=== PATIENT | male | born 1955 | race Hispanic/Latino ===

== ENCOUNTER 2017-11-20 18:20 | Emergency (ER) | payer OTHER ==
[2017-11-20 18:42] VITALS: TEMP 98.3
--- NOTE | 2017-11-20 19:05 | ED PDOC ---
Arrival/HPI - General Chief Complaint: Back Pain Time Seen by Provider: 11/20/17 18:21 Historian: Patient - History of Present Illness Narrative History of Present Illness (Text): 11/20/17 19:01 This 62 yo male, homeless, heroine abuse ( 4 bags daily, snort-only) presents to this ED c/o back pain for "few years". Patient stated pain worsen x 2 weeks ago, after he was carrying "bags" in a construction site. Patient denies IV drug use, sob, cp, weakness, paresthesia, saddle anesthesia, urinary retention, urinary symptoms, skin rash, recent fall, fever, recent travel, abdominal pain, or abnormal gait. Time/Duration: Other (see hpi) Quality: Aching Context: Home Past Medical History - Provider Review Nursing Documentation Reviewed: Yes - Cardiac Hx Cardiac Disorders: No - Pulmonary Hx Respiratory Disorders: No - Neurological Hx Neurological Disorder: No - HEENT Hx HEENT Disorder: No - Renal Hx Renal Disorder: No - Endocrine/Metabolic Hx Endocrine Disorders: No - Hematological/Oncological Hx Blood Disorders: No - Integumentary Hx Dermatological Disorder: No - Musculoskeletal/Rheumatological Hx Musculoskeletal Disorders: Yes Hx Back Pain: Yes - Gastrointestinal Hx Gastrointestinal Disorders: No - Genitourinary/Gynecological Hx Genitourinary Disorders: No - Psychiatric Hx Psychophysiologic Disorder: Yes Hx Anxiety: Yes Hx Depression: Yes Hx Substance Use: Yes (HEROIN, CANNABIS) - Surgical History Other/Comment: HERNIA REPAIR Family/Social History - Physician Review Nursing Documentation Reviewed: Yes Family/Social History: Other (noncontributory) Smoking Status: Heavy Smoker > 10 Cigarettes Daily Hx Alcohol Use: Yes Frequency of alcohol use: Socially Hx Substance Use: Yes (HEROIN, CANNABIS) Allergies/Home Meds Allergies/Adverse Reactions: Allergies No Known Allergies Allergy (Verified 11/20/17 18:35) Review of Systems - Review of Systems Constitutional: Normal. absent: Fatigue, Weight Change, Fevers Eyes: Normal ENT: Normal Respiratory: Normal Cardiovascular: Normal Gastrointestinal: Normal Genitourinary Male: Normal Musculoskeletal: Back Pain Skin: Normal Neurological: Normal Endocrine: Normal Hemo/Lymphatic: Normal Psychiatric: Normal Physical Exam Vital Signs Temp Pulse Resp BP Pulse Ox 11/20/17 18:45 98.3 F 64 18 109/73 97 11/20/17 18:36 98.3 F 64 16 109/73 97 Temperature: Afebrile Blood Pressure: Normal Pulse: Regular Respiratory Rate: Normal Appearance: Positive for: Well-Appearing, Non-Toxic, Comfortable Pain Distress: None Mental Status: Positive for: Alert and Oriented X 3 - Systems Exam Head: Present: Atraumatic, Normocephalic Pupils: Present: PERRL Extroacular Muscles: Present: EOMI Conjunctiva: Present: Normal Mouth: Present: Moist Mucous Membranes Neck: Present: Normal Range of Motion. No: Meningeal Signs Respiratory/Chest: Present: Clear to Auscultation, Good Air Exchange. No: Respiratory Distress, Accessory Muscle Use Cardiovascular: Present: Regular Rate and Rhythm, Normal S1, S2. No: Murmurs Abdomen: No: Tenderness, Distention, Peritoneal Signs Back: Present: Normal Inspection, Paraspinal Tenderness (mild left paravertebral tenderness. no vertebral step off. No vertebral point tenderness. no skin rash). No: CVA Tenderness, Midline Tenderness, Pain with Leg Raise Upper Extremity: Present: Normal Inspection, Normal ROM, NORMAL PULSES. No: Cyanosis, Edema Lower Extremity: Present: Normal Inspection, Normal ROM, Neurovascularly Intact. No: Edema Neurological: Present: GCS=15, CN II-XII Intact, Speech Normal, Motor Func Grossly Intact, Normal Sensory Function, Normal Cerebellar Funct, Gait Normal Skin: Present: Warm, Dry, Normal Color. No: Rashes Psychiatric: Present: Alert, Oriented x 3, Normal Insight, Normal Concentration Medical Decision Making ED Course and Treatment: 11/20/17 21:06 Re-evaluation. Patient feels better. Discussed results and plan with patient who expresses understanding. All questions answered and there is agreement with the plan to discharge home with instructions. Patient stable for discharge. Return if symptoms persist or worsen. Re-evaluation Time: 21:06 Reassessment Condition: Re-examined, Improved - RAD Interpretation Radiology Orders: 11/20/17 19:00 LS SPINE WITH OBL > 18 YRS OLD [RAD] Stat - Medication Orders Current Medication Orders: Discontinued Medications Ketorolac Tromethamine (Toradol) 30 mg IM STAT STA Stop: 11/20/17 19:01 Last Admin: 11/20/17 19:11 Dose: 30 mg MAR Pain Assessment Document 11/20/17 19:11 MS (Rec: 11/20/17 19:12 MS [id number]) Pain Reassessment Is this a pain reassessment? No Sleep Is patient sleeping during reassessment? No Presence of Pain Presence of Pain Yes Pain Scale Used Pain Scale Used Numeric Location Pain Location Body Site Back Description Description Intermittent Intensity of Pain at present 5 Pain Behavior Irritability Grasping Site IM Administration Charges Document 11/20/17 19:11 MS (Rec: 11/20/17 19:12 MS [id number]) Injection Site MAR Injection Site Left Deltoid Charges for Administration # of IM Administrations 1 Disposition/Present on Arrival - Present on Arrival Any Indicators Present on Arrival: No History of DVT/PE: No History of Uncontrolled Diabetes: No Urinary Catheter: No History of Decub. Ulcer: No History Surgical Site Infection Following: None - Disposition Have Diagnosis and Disposition been Completed?: Yes Diagnosis: Chronic back pain Disposition: HOME/ ROUTINE Disposition Time: 21:08 Patient Plan: Discharge Condition: IMPROVED Discharge Instructions (ExitCare): Chronic Pain (DC) Additional Instructions: Call private docor for follow up visit in 1-2 days. Take medication as instructed. Return to emergency if symptoms worsen, fever or urinary symptoms. Prescriptions: Ibuprofen [Motrin] 400 mg PO Q8H PRN #20 tab PRN Reason: Pain, Severe (8-10) Referrals: Manpreet Orta MD [Primary Care Provider] - Follow up with primary Forms: [employer] (Danish)
[2017-11-20 22:02] VITALS: BP 110/76; PULSE 66; RESP 16; O2SAT 98
--- NOTE | 2017-11-21 06:59 | RAD ---
PROCEDURE: Radiographs of the Lumbar Spine. HISTORY: Pain. No history of recent/ related trauma provided COMPARISON: No prior. FINDINGS: BONES: Normal alignment. No listhesis. No fracture. DISC SPACES: Multilevel degenerative change primarily disc space narrowing, non marginal osteophyte formation. OTHER FINDINGS: None. IMPRESSION: No acute findings related to/accounting for the clinical presentation. Additional benign and/or incidental findings described above. Concordant results with the preliminary interpretation rendered by the emergency department physician procedure.
== END 2017-11-20 21:16 | disposition home or self-care (01) ==
LOC: ED 18:20
DX: M54.9 Dorsalgia, unspecified (principal); G89.29 Other chronic pain
CPT/HCPCS: 72110; 96372; 99283; J1885

== ENCOUNTER 2018-09-20 16:05 | Observation (INO) | payer MEDICAID, OTHER ==
--- NOTE | 2018-09-20 16:20 | ED PDOC ---
Arrival/HPI - General Chief Complaint: Weakness/Neurological Deficit Historian: Patient, EMS - History of Present Illness Narrative History of Present Illness (Text): 09/20/18 16:17 63 year old homeless male, whose past medical history includes heroine abuse ( 4 bags daily, snort-only), presents to the emergency department via EMS for complaints of shortness of breath and generalized weakness. As per EMS, patient's friend called the ambulance reporting patient is complaining of shortness of breath and weakness. Patient reports he has a history of auditory hallucination for years, but now is complaining of sudden midsternal chest pressure and shortness of breath that began today. Patient admits to heroin use today intranasally and reports history of ben dust use and smoking cigarettes. Patient denies any fever, chills, nausea, vomiting, diarrhea, urinary symptoms, back pain, neck pain, headache, dizziness, suicidal Ideation/homicidal Ideation, or any other complaints. States that he has not had chest heaviness like this in past. Denies trauma. Denies pleuritic pain. No hemoptysis. Symptom Onset: Gradual Symptom Course: Unchanged Context: Street Past Medical History - Provider Review Nursing Documentation Reviewed: Yes - Cardiac Hx Cardiac Disorders: No - Pulmonary Hx Respiratory Disorders: No - Neurological Hx Neurological Disorder: No - HEENT Hx HEENT Disorder: No - Renal Hx Renal Disorder: No - Endocrine/Metabolic Hx Endocrine Disorders: No - Hematological/Oncological Hx Blood Disorders: No - Integumentary Hx Dermatological Disorder: No - Musculoskeletal/Rheumatological Hx Musculoskeletal Disorders: Yes Hx Back Pain: Yes - Gastrointestinal Hx Gastrointestinal Disorders: No - Genitourinary/Gynecological Hx Genitourinary Disorders: No - Psychiatric Hx Anxiety: Yes Hx Depression: Yes Hx Substance Use: Yes (HEROIN, CANNABIS) - Surgical History Other/Comment: HERNIA REPAIR Family/Social History - Physician Review Nursing Documentation Reviewed: Yes Family/Social History: Unknown Family HX Smoking Status: Heavy Smoker > 10 Cigarettes Daily Hx Alcohol Use: Yes Hx Substance Use: Yes (HEROIN, CANNABIS) Allergies/Home Meds Allergies/Adverse Reactions: Allergies No Known Allergies Allergy (Verified 09/20/18 16:16) Home Medications: Home Meds Medication Instructions Recorded Confirmed No Known Home Med 09/20/18 09/20/18 Review of Systems - Review of Systems Constitutional: Fatigue. absent: Fevers, Other (chills) ENT: absent: Hearing Changes, Sore Throat, Rhinorrhea Respiratory: SOB, Cough. absent: Wheezing Cardiovascular: Chest Pain. absent: Palpitations, Edema, OTOOLE Gastrointestinal: absent: Diarrhea, Nausea, Vomiting Genitourinary Male: absent: Dysuria, Frequency, Hematuria Musculoskeletal: absent: Back Pain, Neck Pain Skin: absent: Cellulitis Neurological: Other (generalized weakness). absent: Headache, Dizziness Endocrine: absent: Polyuria Psychiatric: Other (auditory hallucination). absent: Depression, Suicidal Ideation (/HI) Physical Exam - Physical Exam Narrative Physical Exam (Text): Head: Atraumatic. Normocephalic. Eyes: Pupils pinpoint minimally reactive. EOMI. Conjunctivae are not pale. ENT: Mucous membranes are moist and intact. Oropharynx is clear and symmetric. Poor dentition. No stridor, no uvular deviation or exudates. Neck: Supple. Full ROM. No JVD. No lymphadenopathy. Cardiovascular: Regular rate. Regular rhythm. Systolic murmur.. Distal pulses are 2+ and symmetric. Pulmonary/Chest: Mild bilateral expiatory wheezes. Palpable discomfort to left anterior chest wall with no lesions or crepitus noted. No evidence of respiratory distress. Clear to auscultation bilaterally. rales or rhonchi. Abdominal: Mild epigastric pain. No rebound, guarding, or rigidity. No organomegaly. Good bowel sounds. Back: No CVA tenderness. Rectal: no gross bleeding Extremities: Poor hygiene. No edema. No cyanosis. No clubbing. Full range of motion in all extremities. No calf tenderness. Skin: Skin is warm and dry. No petechiae. No purpura. Neurological: Alert, awake, and oriented to person, place, time, and situation. Normal speech. No facial droop. No pronator drift. No focal motor or sensory deficits. Psychiatric: Good eye contact. Currently denies any suicidal or homicidal ideation. Vital Signs Reviewed: Yes Temperature: Afebrile Blood Pressure: Hypertensive Pulse: Regular Respiratory Rate: Normal Appearance: Positive for: Non-Toxic, Unkept Medical Decision Making ED Course and Treatment: 09/20/18 16:19 Impression: 63 year old homeless male presents for complaints of sudden midsternal chest pressure and shortness of breath that began today. Patient admits to heroin use. Differential Diagnosis included but are not limited to: CAD VS COPD VS Pneumonia VS Drug Abuse Plan: -- EKG -- Labs -- Chest X-Ray -- Fingerstick -- Influenza A B -- Urinalysis -- Reassess and disposition Prior Visits: Notes and results from previous visits were reviewed. Progress Notes: Patient on initial exam is awake, alert. Mild wheezing. No respiratory distress. No pleuritic pain. No acute trauma noted. EKG reveals NSR with no acute st elevations. He denies past cardiac history. Chest X-ray Dictator : Kiarra Hunt MD Report Date : 09/20/2018 17:01:42 IMPRESSION: No focal consolidation. 09/20/18 19:36 With serial exams, patient states at rest pain has resolved. Equal pulses in both upper extremities. Nebulizer administered for wheezing. No respiratory distress noted. With serial exams he exhibits no respiratory depression and is awake and alert. Will admit to telemetry observation for cardiac monitoring, serial exams. Case d/w Dr. Drummond accepts admission to hospitalist. - Lab Interpretations I have reviewed the lab results: Yes - RAD Interpretation Parimutuel Cashier: Radiologist - EKG Interpretation Interpreted by ED Physician: Yes Type: 12 lead EKG - Scribe Statement The provider has reviewed the documentation as recorded by the Scribe Nikki Key Provider Scribe Attestation: All medical record entries made by the Scribe were at my direction and personally dictated by me. I have reviewed the chart and agree that the record accurately reflects my personal performance of the history, physical exam, medical decision making, and the department course for this patient. I have also personally directed, reviewed, and agree with the discharge instructions and disposition. Disposition/Present on Arrival - Present on Arrival Any Indicators Present on Arrival: No History of DVT/PE: No History of Uncontrolled Diabetes: No Urinary Catheter: No History of Decub. Ulcer: No History Surgical Site Infection Following: None - Disposition Have Diagnosis and Disposition been Completed?: Yes Diagnosis: Chest pain, Heroin abuse Disposition: HOSPITALIZED Disposition Time: 19:30 Patient Plan: Admission, Observation, Telemetry Patient Problems: Current Active Problems Problem Status Onset Chest pain Acute Heroin abuse Acute Condition: FAIR
--- NOTE | 2018-09-20 17:05 | RAD ---
HISTORY: sob COMPARISON: None available. TECHNIQUE: Chest, one view. FINDINGS: LUNGS: No focal consolidation. Please note that chest x-ray has limited sensitivity for the detection of pulmonary masses. PLEURA: No significant pleural effusion identified. No definite pneumothorax . CARDIOVASCULAR: Heart size appears top normal. Atherosclerotic calcifications of the aortic knob. OSSEOUS STRUCTURES: No acute osseous abnormality identified. VISUALIZED UPPER ABDOMEN: Unremarkable. OTHER FINDINGS: None. IMPRESSION: No focal consolidation.
[2018-09-20 17:17] LABS: BASO # 0.01 {null, K/mm3} (0.0-2.0); BASO % 0.2 % (0.0-3.0); EOS # 0.5 (0.0-0.7); EOS % 7.2 % (1.5-5.0); HEMOGLOBIN 12.1 g/dL (14.0-18.0); LYMPH # 2.3 (1.2-3.4); LYMPH % 34.7 % (22.0-35.0); MEAN CELL VOLUME 92.1 fl (80.0-105.0); MEAN CORPUSCULAR HEMOGLOBIN 28.9 pg (25.0-35.0); MEAN CORPUSCULAR HGB CONC 31.4 g/dl (31.0-37.0); MEAN PLATELET VOLUME 10.3 fl (7.0-11.0); MONO # 0.4 (0.1-0.6); MONO % 6.6 % (1.0-6.0); RBC 4.18 {null, 10^6/uL} (3.5-6.1); RED CELL DISTRIBUTION WIDTH 13.8 % (11.5-14.5); WHITE BLOOD COUNT 6.5 {null, 10^3/uL} (4.5-11.0)
[2018-09-20 17:26] LABS: INR 1.08
[2018-09-20 17:27] LABS: ALB/GLOB RATIO 1.2 (1.1-1.8); ALBUMIN 4.2 g/dL (3.0-4.8); ALT/SGPT 19 U/L (7-56); AST/SGOT 39 U/L (17-59); BLOOD UREA NITROGEN 29 mg/dL (7-21); CALCIUM 9.3 mg/dL (8.4-10.5); GFR NON-AFRICAN AMERICAN > 60
[2018-09-20 17:31] LABS: ACETAMINOPHEN < 10.0 ug/ml (10.0-20.0); SALICYLATE < 1 mg/dL (2.0-20.0)
[2018-09-20 17:39] LABS: B-TYPE NATRIURETIC PEPTIDE 106 pg/mL (0-450); TROPONIN I < 0.01 ng/mL
[2018-09-20] MEDS ORDERED: Albuterol-Ipratrop 3 mg / 0.5 (3 ml) UD IH STA (19:28)
[2018-09-20] MEDS ORDERED: Albuterol-Ipratrop 3 mg / 0.5 (3 ml) UD IH PRN (19:49)
--- NOTE | 2018-09-20 20:15 | CP.PCM.HP ---
<Juan Byrnes - Last Filed: 09/21/18 00:02> History of Present Illness - History of Present Illness History of Present Illness: Juan Byrnes, PGY1 Medicine H&P for Dr. Drummond cc: "sob and chest pain" Patient is a 63 year old homeless male, whose past medical history includes heroine abuse (4 bags daily, snort-only), presents to the emergency department via EMS for complaints of shortness of breath and chest pain. In the ED, patient claimed to have sudden mid-sternal chest pain. Medical team evaluated patient in the ED. Patient only endorsed mild chest discomfort at the time. He is no longer feeling short of breath. However, patient did mention that he snorted cocaine today and also used "ben-dust" (PCP). He also mentioned that his last drink was a shot of liquor yesterday. Patient denies fever, chills, nausea, vomiting, diarrhea, bowel/bladder changes, headache, lightheadedness, dizziness. A full 12 point ROS was conducted and unremarkable except as stated above. PMHx: Heroin abuse (4 bags daily, snort-only) PSHx: left hernia repair (1 year ago), compound fracture (several years ago) Meds: none Allergies: NKDA SocialHx: drinks EtOH, does not specify quantity. Smokes 1 PPD. Uses PCP and heroin frequently. Patient is homeless. FamHx: non-contributory Present on Admission - Present on Admission Any Indicators Present on Admission: No Review of Systems - Review of Systems All systems: reviewed and no additional remarkable complaints except (as per HPI) Past Patient History - Past Social History Smoking Status: Heavy Smoker > 10 Cigarettes Daily - CARDIAC Hx Cardiac Disorders: No - PULMONARY Hx Respiratory Disorders: No - NEUROLOGICAL Hx Neurological Disorder: No - HEENT Hx HEENT Problems: No - RENAL Hx Chronic Kidney Disease: No - ENDOCRINE/METABOLIC Hx Endocrine Disorders: No - HEMATOLOGICAL/ONCOLOGICAL Hx Blood Disorders: No - INTEGUMENTARY Hx Dermatological Problems: No - MUSCULOSKELETAL/RHEUMATOLOGICAL Hx Musculoskeletal Disorders: Yes Hx Back Pain: Yes - GASTROINTESTINAL Hx Gastrointestinal Disorders: No - GENITOURINARY/GYNECOLOGICAL Hx Genitourinary Disorders: No - PSYCHIATRIC Hx Anxiety: Yes Hx Depression: Yes Hx Substance Use: Yes (HEROIN, CANNABIS) - SURGICAL HISTORY Other/Comment: HERNIA REPAIR Meds Allergies/Adverse Reactions: Allergies Allergy/AdvReac Type Severity Reaction Status Date / Time No Known Allergies Allergy Verified 09/20/18 16:16 Physical Exam - Constitutional Appears: No Acute Distress - Head Exam Head Exam: ATRAUMATIC, NORMAL INSPECTION, NORMOCEPHALIC - Eye Exam Eye Exam: EOMI, Normal appearance Pupil Exam: Miosis (Pinpoint pupils. ) - ENT Exam ENT Exam: Mucous Membranes Moist - Respiratory Exam Respiratory Exam: Clear to Auscultation Bilateral. absent: Accessory Muscle Use, Chest Wall Tenderness, Rales, Rhonchi, Wheezes, Respiratory Distress, Stridor - Cardiovascular Exam Cardiovascular Exam: RRR, +S1, +S2 - GI/Abdominal Exam GI & Abdominal Exam: Normal Bowel Sounds, Soft. absent: Distended, Firm, Guarding, Organomegaly, Rebound, Rigid, Tenderness - Extremities Exam Extremities exam: Positive for: normal capillary refill, normal inspection, pedal pulses present - Neurological Exam Neurological exam: Alert (AAOx2. ), CN II-XII Intact - Psychiatric Exam Psychiatric exam: Normal Affect, Normal Mood - Skin Skin Exam: Dry, Intact, Normal Color, Warm Results - Vital Signs Recent Vital Signs: Last Vital Signs Temp 98.8 F 09/20/18 16:22 Pulse 74 09/20/18 19:24 Resp 18 09/20/18 19:24 BP 130/62 09/20/18 19:24 Pulse Ox 95 09/20/18 19:24 - Labs Result Diagrams: 09/20/18 17:09 09/20/18 17:09 Labs: Laboratory Results - last 24 hr 09/20/18 09/20/18 09/20/18 17:09 17:09 17:09 WBC 6.5 RBC 4.18 Hgb 12.1 L Hct 38.5 L MCV 92.1 MCH 28.9 MCHC 31.4 RDW 13.8 Plt Count 216 MPV 10.3 Neut % (Auto) 51.3 Lymph % (Auto) 34.7 [place] % (Auto) 6.6 H Eos % (Auto) 7.2 H Baso % (Auto) 0.2 Lymph # (Auto) 2.3 [place] # (Auto) 0.4 Eos # (Auto) 0.5 Baso # (Auto) 0.01 Absolute Neuts (auto) 3.34 PT INR APTT Sodium 143 Potassium 4.2 Chloride 106 Carbon Dioxide 30 Anion Gap 10 BUN 29 H Creatinine 1.1 Est GFR ( Amer) > 60 Est GFR (Non-Af Amer) > 60 Random Glucose 119 H Calcium 9.3 Magnesium 2.3 H Total Bilirubin 0.3 AST 39 ALT 19 Alkaline Phosphatase 110 Lactate Dehydrogenase 502 Total Creatine Kinase 226 Troponin I < 0.01 NT-Pro-B Natriuret Pep 106 Total Protein 7.6 Albumin 4.2 Globulin 3.4 Albumin/Globulin Ratio 1.2 Salicylates Acetaminophen Alcohol, Quantitative Influenza Typ A,B (EIA) Negative for flu a/b 09/20/18 09/20/18 09/20/18 17:09 17:09 17:09 WBC RBC Hgb Hct MCV MCH MCHC RDW Plt Count MPV Neut % (Auto) Lymph % (Auto) [place] % (Auto) Eos % (Auto) Baso % (Auto) Lymph # (Auto) [place] # (Auto) Eos # (Auto) Baso # (Auto) Absolute Neuts (auto) PT 12.0 INR 1.08 APTT 40.0 H Sodium Potassium Chloride Carbon Dioxide Anion Gap BUN Creatinine Est GFR ( Amer) Est GFR (Non-Af Amer) Random Glucose Calcium Magnesium Total Bilirubin AST ALT Alkaline Phosphatase Lactate Dehydrogenase Total Creatine Kinase Troponin I NT-Pro-B Natriuret Pep Total Protein Albumin Globulin Albumin/Globulin Ratio Salicylates < 1 L Acetaminophen < 10.0 L Alcohol, Quantitative < 10 Influenza Typ A,B (EIA) Assessment & Plan - Assessment and Plan (Free Text) Assessment: Patient is a 63 year old homeless male, whose past medical history includes heroine abuse (4 bags daily, snort-only), presents to the emergency department via EMS for complaints of shortness of breath and chest pain. Patient will be admitted for chest pain - r/o ACS. Plan: Chest Pain - r/o ACS - Likely 2/2 substance abuse - TSH and T4 - Hgb A1c - Lipid panel - Trend trops q6; initial trop negative x1 - ASA 81mg PO daily - Urine Drug Screen - acetaminophen 650 mg PO q6 prn - Cardio consulted (Dr. Aburto) - EKG: NSR with no acute ST or T wave changes. Shortness of Breath - Likely 2/2 substance abuse - duonebs q6 prn - nasal cannula 2L prn - D-dimer - influenza negative - CXR: no consolidation or infiltrate EtOH Intoxication/Withdrawal - ativan 1mg IVP q6 prn - Banana bag x1 - WA protocol - seizure/fall/aspiration precautions - EtOH level Polysubstance Abuse - Counseled on cessation DVT ppx: lovenox GI ppx: ptx Diet: HHD Dispo: Patient will be observed on telemetry. Follow up cardio recs. Case was discussed and reviewed with Attending Physician, Dr. Drummond <Hans Drummond - Last Filed: 09/21/18 06:31> Results - Vital Signs Recent Vital Signs: Last Vital Signs Temp 97.6 F 09/21/18 00:01 Pulse 62 09/21/18 02:00 Resp 20 09/21/18 00:01 BP 149/66 09/21/18 00:01 Pulse Ox 99 09/21/18 00:01 - Labs Result Diagrams: 09/20/18 17:09 09/20/18 17:09 Labs: Laboratory Results - last 24 hr 09/20/18 09/20/18 09/20/18 17:09 17:09 17:09 WBC 6.5 RBC 4.18 Hgb 12.1 L Hct 38.5 L MCV 92.1 MCH 28.9 MCHC 31.4 RDW 13.8 Plt Count 216 MPV 10.3 Neut % (Auto) 51.3 Lymph % (Auto) 34.7 [place] % (Auto) 6.6 H Eos % (Auto) 7.2 H Baso % (Auto) 0.2 Lymph # (Auto) 2.3 [place] # (Auto) 0.4 Eos # (Auto) 0.5 Baso # (Auto) 0.01 Absolute Neuts (auto) 3.34 PT INR APTT D-Dimer, Quantitative Sodium 143 Potassium 4.2 Chloride 106 Carbon Dioxide 30 Anion Gap 10 BUN 29 H Creatinine 1.1 Est GFR ( Amer) > 60 Est GFR (Non-Af Amer) > 60 Random Glucose 119 H Calcium 9.3 Magnesium 2.3 H Total Bilirubin 0.3 AST 39 ALT 19 Alkaline Phosphatase 110 Lactate Dehydrogenase 502 Total Creatine Kinase 226 Troponin I < 0.01 NT-Pro-B Natriuret Pep 106 Total Protein 7.6 Albumin 4.2 Globulin 3.4 Albumin/Globulin Ratio 1.2 Triglycerides Cholesterol LDL Cholesterol Direct HDL Cholesterol Free T4 TSH 3rd Generation Urine Color Urine Appearance Urine pH Ur Specific [place] Urine Protein Urine Glucose (UA) Urine Ketones Urine Blood Urine Nitrate Urine Bilirubin Urine Urobilinogen Ur Leukocyte Esterase Salicylates Acetaminophen Alcohol, Quantitative Influenza Typ A,B (EIA) Negative for flu a/b 09/20/18 09/20/18 09/20/18 17:09 17:09 17:09 WBC RBC Hgb Hct MCV MCH MCHC RDW Plt Count MPV Neut % (Auto) Lymph % (Auto) [place] % (Auto) Eos % (Auto) Baso % (Auto) Lymph # (Auto) [place] # (Auto) Eos # (Auto) Baso # (Auto) Absolute Neuts (auto) PT 12.0 INR 1.08 APTT 40.0 H D-Dimer, Quantitative Sodium Potassium Chloride Carbon Dioxide Anion Gap BUN Creatinine Est GFR ( Amer) Est GFR (Non-Af Amer) Random Glucose Calcium Magnesium Total Bilirubin AST ALT Alkaline Phosphatase Lactate Dehydrogenase Total Creatine Kinase Troponin I NT-Pro-B Natriuret Pep Total Protein Albumin Globulin Albumin/Globulin Ratio Triglycerides Cholesterol LDL Cholesterol Direct HDL Cholesterol Free T4 TSH 3rd Generation Urine Color Urine Appearance Urine pH Ur Specific [place] Urine Protein Urine Glucose (UA) Urine Ketones Urine Blood Urine Nitrate Urine Bilirubin Urine Urobilinogen Ur Leukocyte Esterase Salicylates < 1 L Acetaminophen < 10.0 L Alcohol, Quantitative < 10 Influenza Typ A,B (EIA) 09/20/18 09/20/18 09/20/18 17:09 17:09 17:20 WBC RBC Hgb Hct MCV MCH MCHC RDW Plt Count MPV Neut % (Auto) Lymph % (Auto) [place] % (Auto) Eos % (Auto) Baso % (Auto) Lymph # (Auto) [place] # (Auto) Eos # (Auto) Baso # (Auto) Absolute Neuts (auto) PT INR APTT D-Dimer, Quantitative < 200 Sodium Potassium Chloride Carbon Dioxide Anion Gap BUN Creatinine Est GFR ( Amer) Est GFR (Non-Af Amer) Random Glucose Calcium Magnesium Total Bilirubin AST ALT Alkaline Phosphatase Lactate Dehydrogenase Total Creatine Kinase Troponin I NT-Pro-B Natriuret Pep Total Protein Albumin Globulin Albumin/Globulin Ratio Triglycerides 113 Cholesterol 181 LDL Cholesterol Direct 112 HDL Cholesterol 45 Free T4 1.01 TSH 3rd Generation 1.57 Urine Color Urine Appearance Urine pH Ur Specific [place] Urine Protein Urine Glucose (UA) Urine Ketones Urine Blood Urine Nitrate Urine Bilirubin Urine Urobilinogen Ur Leukocyte Esterase Salicylates Acetaminophen Alcohol, Quantitative Influenza Typ A,B (EIA) 09/20/18 09/21/18 23:30 04:15 WBC RBC Hgb Hct MCV MCH MCHC RDW Plt Count MPV Neut % (Auto) Lymph % (Auto) [place] % (Auto) Eos % (Auto) Baso % (Auto) Lymph # (Auto) [place] # (Auto) Eos # (Auto) Baso # (Auto) Absolute Neuts (auto) PT INR APTT D-Dimer, Quantitative Sodium Potassium Chloride Carbon Dioxide Anion Gap BUN Creatinine Est GFR ( Amer) Est GFR (Non-Af Amer) Random Glucose Calcium Magnesium Total Bilirubin AST ALT Alkaline Phosphatase Lactate Dehydrogenase Total Creatine Kinase Troponin I < 0.01 NT-Pro-B Natriuret Pep Total Protein Albumin Globulin Albumin/Globulin Ratio Triglycerides Cholesterol LDL Cholesterol Direct HDL Cholesterol Free T4 TSH 3rd Generation Urine Color Yellow Urine Appearance Clear Urine pH 6.0 Ur Specific [place] >= 1.030 Urine Protein Negative Urine Glucose (UA) Negative Urine Ketones Negative Urine Blood Negative Urine Nitrate Negative Urine Bilirubin Negative Urine Urobilinogen 0.2 Ur Leukocyte Esterase Negative Salicylates Acetaminophen Alcohol, Quantitative Influenza Typ A,B (EIA) Attending/Attestation - Attestation I have personally seen and examined this patient.: Yes I have fully participated in the care of the patient.: Yes I have reviewed all pertinent clinical information: Yes Notes (Text): 09/21/18 04:57 Patient was seen when he was in [facility] Medical record was reviewed. Agree with history, physical examination, assessment and plan.
[2018-09-20 20:42] LABS: HDL CHOLESTEROL 45 mg/dL (29-60)
[2018-09-20] MEDS ORDERED: Folic Acid 1 MG, Thiamine 100 MG, Multivitamin (MVI) 10 ML in Dextrose 5% In Water 1,00... IV SCH (20:45)
[2018-09-20 20:53] LABS: LDL CHOLESTEROL 112 mg/dL (0-129)
[2018-09-20 21:00] LABS: FREE T4 1.01 ng/dL (0.78-2.19)
[2018-09-20 21:23] VITALS: BMI 26.6
[2018-09-21 04:43] LABS: URINE BILIRUBIN NEGATIVE (NEGATIVE); URINE BLOOD NEGATIVE (NEGATIVE); URINE GLUCOSE (UA) NEGATIVE (NEGATIVE); URINE LEUKOCYTE ESTERASE NEGATIVE Leu/uL (NEGATIVE); URINE PROTEIN NEGATIVE mg/dL (<30 mg/dL); URINE UROBILINOGEN 0.2 E.U./dL (<1 E.U./dL)
[2018-09-21 04:45] LABS: URINE APPEARANCE CLEAR (CLEAR); URINE COLOR YELLOW (YELLOW)
[2018-09-21 06:24] LABS: BARBITURATES, UR NEGATIVE (NEGATIVE); BENZODIAZEPINES, UR NEGATIVE (NEGATIVE); OPIATES, UR POSITIVE (NEGATIVE); PHENCYCLIDINE, UR POSITIVE (NEGATIVE)
[2018-09-21 06:51] LABS: BASO # 0.01 {null, K/mm3} (0.0-2.0); BASO % 0.2 % (0.0-3.0); EOS # 0.4 (0.0-0.7); EOS % 6.8 % (1.5-5.0); HEMOGLOBIN 11.1 g/dL (14.0-18.0); LYMPH # 1.6 (1.2-3.4); LYMPH % 27.9 % (22.0-35.0); MEAN CELL VOLUME 92.8 fl (80.0-105.0); MEAN CORPUSCULAR HEMOGLOBIN 28.6 pg (25.0-35.0); MEAN CORPUSCULAR HGB CONC 30.8 g/dl (31.0-37.0); MEAN PLATELET VOLUME 10.5 fl (7.0-11.0); MONO # 0.5 (0.1-0.6); RBC 3.88 {null, 10^6/uL} (3.5-6.1); WHITE BLOOD COUNT 5.8 {null, 10^3/uL} (4.5-11.0)
[2018-09-21 07:10] LABS: TROPONIN I < 0.01 ng/mL
[2018-09-21 07:45] LABS: BLOOD UREA NITROGEN 25 mg/dL (7-21); CALCIUM 8.7 mg/dL (8.4-10.5); GFR NON-AFRICAN AMERICAN > 60
--- NOTE | 2018-09-21 09:39 | CARD ---
APPROVED REPORT Date of service: 09/20/2018 EKG Measurement Heart [id number] <Conclusion> Normal sinus rhythm Normal ECG
[2018-09-21] MEDS: Enoxaparin 40 mg Syringe SC SCH (10:02)
[2018-09-21] MEDS: Pantoprazole 40 mg EC Tab PO SCH (10:02)
--- NOTE | 2018-09-21 12:18 | CON ---
DATE: 09/21/2018 CARDIOLOGY CONSULTATION HISTORY: The patient is a 63-year-old male, who presents with chest pain. He was found to be lethargic after snorting his heroin at home. He denies cardiac history. He is an active smoker. He is not interested in giving anymore history. He said he is tired only once asleep. PHYSICAL EXAMINATION: VITAL SIGNS: Blood pressure 123/73, heart rates in the 50s. NECK: Negative JVD. LUNGS: Without rales. HEART: Reveal S1, S2. EXTREMITIES: Without edema. EKG shows no acute changes. LABORATORY DATA: Troponins are negative x3. Glucose is 124. IMPRESSION: 1. The patient is non-cooperative in terms of giving history, is not interested in going through history and physical. 2. Atypical chest pain, which is now resolved. 3. No evidence for acute coronary syndrome. 4. Likely chronic obstructive pulmonary disease from smoking. 5. Drug abuse with heroin daily. Given these findings, the patient is not interested in going through an exam, given that there is no acute coronary syndrome. The patient will need drug detox program. No further cardiac workup is able to obtain from the patient today. We will discontinue telemetry. We will sign off on the case today. Sunday Otero MD
--- NOTE | 2018-09-21 15:34 | CARD ---
APPROVED REPORT Date of service: 09/21/2018 EKG Measurement Heart [id number] <Conclusion> Sinus rhythm with premature atrial complexes Otherwise normal ECG
[2018-09-21 21:33] VITALS: RESP 18
[2018-09-22 06:55] VITALS: BP 140/72; PULSE 60; TEMP 98; O2SAT 98
[2018-09-22 07:00] LABS: EOS # 0.3 (0.0-0.7); EOS % 3.8 % (1.5-5.0); HEMOGLOBIN 12.6 g/dL (14.0-18.0); LYMPH # 1.7 (1.2-3.4); LYMPH % 25.5 % (22.0-35.0); MEAN CELL VOLUME 90.6 fl (80.0-105.0); MEAN PLATELET VOLUME 10.4 fl (7.0-11.0); MONO # 0.3 (0.1-0.6); MONO % 4.6 % (1.0-6.0); RBC 4.35 {null, 10^6/uL} (3.5-6.1); RED CELL DISTRIBUTION WIDTH 13.4 % (11.5-14.5); WHITE BLOOD COUNT 6.5 {null, 10^3/uL} (4.5-11.0)
[2018-09-22 07:22] LABS: BLOOD UREA NITROGEN 18 mg/dL (7-21); CALCIUM 9.2 mg/dL (8.4-10.5); GFR NON-AFRICAN AMERICAN > 60
[2018-09-22] MEDS: Enoxaparin 40 mg Syringe SC SCH ×2 (10:15→10:18)
[2018-09-22] MEDS: Pantoprazole 40 mg EC Tab PO SCH (10:15)
--- NOTE | 2018-09-22 13:39 | CP.PCM.DIS ---
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 Hospital Course - Lab Results Lab Results: Most Recent Lab Values WBC 6.5 10^3/uL (4.5-11.0) 09/22/18 06:40 RBC 4.35 10^6/uL (3.5-6.1) 09/22/18 06:40 Hgb 12.6 g/dL (14.0-18.0) L 09/22/18 06:40 Hct 39.4 % (42.0-52.0) L 09/22/18 06:40 MCV 90.6 fl (80.0-105.0) 09/22/18 06:40 MCH 29.0 pg (25.0-35.0) 09/22/18 06:40 MCHC 32.0 g/dl (31.0-37.0) 09/22/18 06:40 RDW 13.4 % (11.5-14.5) 09/22/18 06:40 Plt Count 196 10^3/uL (120.0-450.0) 09/22/18 06:40 MPV 10.4 fl (7.0-11.0) 09/22/18 06:40 Neut % (Auto) 66.1 % (50.0-68.0) 09/22/18 06:40 Lymph % (Auto) 25.5 % (22.0-35.0) 09/22/18 06:40 White % (Auto) 4.6 % (1.0-6.0) 09/22/18 06:40 Eos % (Auto) 3.8 % (1.5-5.0) 09/22/18 06:40 Baso % (Auto) 0.0 % (0.0-3.0) 09/22/18 06:40 Lymph # (Auto) 1.7 (1.2-3.4) 09/22/18 06:40 White # (Auto) 0.3 (0.1-0.6) 09/22/18 06:40 Eos # (Auto) 0.3 (0.0-0.7) 09/22/18 06:40 Baso # (Auto) 0.00 K/mm3 (0.0-2.0) 09/22/18 06:40 Absolute Neuts (auto) 4.29 (1.4-6.5) 09/22/18 06:40 PT 12.0 SECONDS (9.4-12.5) 09/20/18 17:09 INR 1.08 09/20/18 17:09 APTT 40.0 Seconds (26.9-38.3) H 09/20/18 17:09 D-Dimer, Quantitative < 200 ng/mlDDU (0-243) 09/20/18 17:20 Sodium 140 mmol/L (132-148) 09/22/18 06:40 Potassium 4.3 mmol/L (3.6-5.0) 09/22/18 06:40 Chloride 110 mmol/L (98-107) H 09/22/18 06:40 Carbon Dioxide 27 mmol/L (21-33) 09/22/18 06:40 Anion Gap 7 (10-20) L 09/22/18 06:40 BUN 18 mg/dL (7-21) 09/22/18 06:40 Creatinine 0.7 mg/dl (0.8-1.5) L 09/22/18 06:40 Est GFR ( Amer) > 60 09/22/18 06:40 Est GFR (Non-Af Amer) > 60 09/22/18 06:40 Random Glucose 113 mg/dL (70-110) H 09/22/18 06:40 Hemoglobin A1c 6.1 % (4.2-6.5) 09/20/18 17:09 Calcium 9.2 mg/dL (8.4-10.5) 09/22/18 06:40 Phosphorus 3.1 mg/dL (2.5-4.5) 09/22/18 05:00 Magnesium 2.0 mg/dL (1.7-2.2) 09/22/18 05:00 Total Bilirubin 0.3 mg/dL (0.2-1.3) 09/20/18 17:09 AST 39 U/L (17-59) 09/20/18 17:09 ALT 19 U/L (7-56) 09/20/18 17:09 Alkaline Phosphatase 110 U/L (38-126) 09/20/18 17:09 Lactate Dehydrogenase 502 U/L (333-699) 09/20/18 17:09 Total Creatine Kinase 226 U/L (35-230) 09/20/18 17:09 Troponin I < 0.01 ng/mL 09/21/18 06:00 NT-Pro-B Natriuret Pep 106 pg/mL (0-450) 09/20/18 17:09 Total Protein 7.6 g/dL (5.8-8.3) 09/20/18 17:09 Albumin 4.2 g/dL (3.0-4.8) 09/20/18 17:09 Globulin 3.4 gm/dL 09/20/18 17:09 Albumin/Globulin Ratio 1.2 (1.1-1.8) 09/20/18 17:09 Triglycerides 113 mg/dL (35-160) 09/20/18 17:09 Cholesterol 181 mg/dL (130-200) 09/20/18 17:09 LDL Cholesterol Direct 112 mg/dL (0-129) 09/20/18 17:09 HDL Cholesterol 45 mg/dL (29-60) 09/20/18 17:09 Free T4 1.01 ng/dL (0.78-2.19) 09/20/18 17:09 TSH 3rd Generation 1.57 mIU/mL (0.46-4.68) 09/20/18 17:09 Urine Color Yellow (YELLOW) 09/21/18 04:15 Urine Appearance Clear (CLEAR) 09/21/18 04:15 Urine pH 6.0 (4.7-8.0) 09/21/18 04:15 Ur Specific Dixon >= 1.030 (1.005-1.035) 09/21/18 04:15 Urine Protein Negative mg/dL (<30 mg/dL) 09/21/18 04:15 Urine Glucose (UA) Negative mg/dL (NEGATIVE) 09/21/18 04:15 Urine Ketones Negative mg/dL (NEGATIVE) 09/21/18 04:15 Urine Blood Negative (NEGATIVE) 09/21/18 04:15 Urine Nitrate Negative (NEGATIVE) 09/21/18 04:15 Urine Bilirubin Negative (NEGATIVE) 09/21/18 04:15 Urine Urobilinogen 0.2 E.U./dL (<1 E.U./dL) 09/21/18 04:15 Ur Leukocyte Esterase Negative Betina/uL (NEGATIVE) 09/21/18 04:15 Salicylates < 1 mg/dL (2.0-20.0) L 09/20/18 17:09 Urine Opiates Screen Positive (NEGATIVE) H 09/21/18 04:15 Urine Methadone Screen Negative (NEGATIVE) 09/21/18 04:15 Acetaminophen < 10.0 ug/ml (10.0-20.0) L 09/20/18 17:09 Ur Barbiturates Screen Negative (NEGATIVE) 09/21/18 04:15 Ur Phencyclidine Scrn Positive (NEGATIVE) H 09/21/18 04:15 Ur Amphetamines Screen Negative (NEGATIVE) 09/21/18 04:15 U Benzodiazepines Scrn Negative (NEGATIVE) 09/21/18 04:15 U Oth Cocaine Metabols Positive (NEGATIVE) H 09/21/18 04:15 U Cannabinoids Screen Negative (NEGATIVE) 09/21/18 04:15 Alcohol, Quantitative < 10 mg/dL (0-10) 09/20/18 17:09 Influenza Typ A,B (EIA) Negative for flu a/b (NEGATIVE) 09/20/18 17:09 - Hospital Course Hospital Course: Patient is a 63 year old homeless male, whose past medical history includes heroine abuse (4 bags daily, snort-only), presents to the emergency department via EMS for complaints of shortness of breath and chest pain. Patient only endorsed mild chest discomfort at the time. Patient also mentioned that he snorted cocaine and PCP. Urine drug test positive for opiates, PCP, and cocaine. At the course of his hospital stay, patient was treated with IV fluids, Ativan, duonebs, tylenol, and Aspirin. Cardiology, Dr. Otero was consulted for his chest pain. Patient's chest pain was unlikely due to cardiac causes. Troponins were negative and EKG did not show any acute findings. Patient was instructed to sta rt taking aspirin and multivitamins. And also claritin for his allergy symptoms. He was also instructed to follow up with his primary care doctor. Patient was instructed to return to the emergency room for worsening or newly concerning symptoms. Patient is medically stable for discharge. Discharge Exam - Head Exam Head Exam: ATRAUMATIC, NORMAL INSPECTION, NORMOCEPHALIC - Additional Findings Additional findings: - Constitutional Appears: No Acute Distress - Head Exam Head Exam: ATRAUMATIC, NORMAL INSPECTION, NORMOCEPHALIC - Eye Exam Eye Exam: EOMI, Normal appearance Pupil Exam: Miosis (Pinpoint pupils. ) - ENT Exam ENT Exam: Mucous Membranes Moist - Respiratory Exam Respiratory Exam: Clear to Auscultation Bilateral. absent: Accessory Muscle Use, Chest Wall Tenderness, Rales, Rhonchi, Wheezes, Respiratory Distress, Stridor - Cardiovascular Exam Cardiovascular Exam: RRR, +S1, +S2 - GI/Abdominal Exam GI & Abdominal Exam: Normal Bowel Sounds, Soft. absent: Distended, Firm, Guarding, Organomegaly, Rebound, Rigid, Tenderness - Extremities Exam Extremities exam: Positive for: normal capillary refill, normal inspection, pedal pulses present - Neurological Exam Neurological exam: Alert (AAOx3. ), CN II-XII Intact - Psychiatric Exam Psychiatric exam: Normal Affect, Normal Mood - Skin Skin Exam: Dry, Intact, Normal Color, Warm Discharge Plan - Discharge Medications Prescriptions: Aspirin [Ecotrin] 81 mg PO DAILY #30 tabec Loratadine [Claritin] 10 mg PO DAILY PRN 1 Days #14 tab PRN Reason: Allergy Symptoms Multimineral/Multivitamin [Therapeutic-M Tab] 1 tab PO DAILY #30 tab - Follow Up Plan Condition: FAIR Disposition: HOME/ ROUTINE Instructions: Drug Abuse and Drug Addiction (DC) Additional Instructions: 1. Start Aspirin 81mg once daily. Multivitamin once daily, and Claritin 10mg once daily as needed for allergy symptoms. 2. Please follow up with your primary care doctor, Dr. Orta within 1 week of discharge. You may also go to [facility] to see a doctor. 3. Please stop taking drugs as we have discussed as it is detrimental to your health. You have been given resources on drug cessation. 4. Return to the emergency room for worsening or newly concerning symptoms. Referrals: Manpreet Orta MD [Family Provider] - Elizabeth Zavala MD [Medical Doctor] - <Maricel Barron - Last Filed: 09/22/18 15:19> Provider - Provider Date of Admission: 09/20/18 19:40 Attending physician: Maricel Barron MD Consults: 09/20/18 19:51 Social Work Referral Routine Comment: homeless, dc planning Physician Instructions: Reason For Exam: homeless, dc planning 09/21/18 11:02 Consult [Physician Consult] Routine Comment: Consulting Provider: Sunday Otero Consulting Physician: Sunday Otero Reason for Consult: chest pain Hospital Course - Lab Results Lab Results: Most Recent Lab Values WBC 6.5 10^3/uL (4.5-11.0) 09/22/18 06:40 RBC 4.35 10^6/uL (3.5-6.1) 09/22/18 06:40 Hgb 12.6 g/dL (14.0-18.0) L 09/22/18 06:40 Hct 39.4 % (42.0-52.0) L 09/22/18 06:40 MCV 90.6 fl (80.0-105.0) 09/22/18 06:40 MCH 29.0 pg (25.0-35.0) 09/22/18 06:40 MCHC 32.0 g/dl (31.0-37.0) 09/22/18 06:40 RDW 13.4 % (11.5-14.5) 09/22/18 06:40 Plt Count 196 10^3/uL (120.0-450.0) 09/22/18 06:40 MPV 10.4 fl (7.0-11.0) 09/22/18 06:40 Neut % (Auto) 66.1 % (50.0-68.0) 09/22/18 06:40 Lymph % (Auto) 25.5 % (22.0-35.0) 09/22/18 06:40 White % (Auto) 4.6 % (1.0-6.0) 09/22/18 06:40 Eos % (Auto) 3.8 % (1.5-5.0) 09/22/18 06:40 Baso % (Auto) 0.0 % (0.0-3.0) 09/22/18 06:40 Lymph # (Auto) 1.7 (1.2-3.4) 09/22/18 06:40 White # (Auto) 0.3 (0.1-0.6) 09/22/18 06:40 Eos # (Auto) 0.3 (0.0-0.7) 09/22/18 06:40 Baso # (Auto) 0.00 K/mm3 (0.0-2.0) 09/22/18 06:40 Absolute Neuts (auto) 4.29 (1.4-6.5) 09/22/18 06:40 PT 12.0 SECONDS (9.4-12.5) 09/20/18 17:09 INR 1.08 09/20/18 17:09 APTT 40.0 Seconds (26.9-38.3) H 09/20/18 17:09 D-Dimer, Quantitative < 200 ng/mlDDU (0-243) 09/20/18 17:20 Sodium 140 mmol/L (132-148) 09/22/18 06:40 Potassium 4.3 mmol/L (3.6-5.0) 09/22/18 06:40 Chloride 110 mmol/L (98-107) H 09/22/18 06:40 Carbon Dioxide 27 mmol/L (21-33) 09/22/18 06:40 Anion Gap 7 (10-20) L 09/22/18 06:40 BUN 18 mg/dL (7-21) 09/22/18 06:40 Creatinine 0.7 mg/dl (0.8-1.5) L 09/22/18 06:40 Est GFR ( Amer) > 60 09/22/18 06:40 Est GFR (Non-Af Amer) > 60 09/22/18 06:40 Random Glucose 113 mg/dL (70-110) H 09/22/18 06:40 Hemoglobin A1c 6.1 % (4.2-6.5) 09/20/18 17:09 Calcium 9.2 mg/dL (8.4-10.5) 09/22/18 06:40 Phosphorus 3.1 mg/dL (2.5-4.5) 09/22/18 05:00 Magnesium 2.0 mg/dL (1.7-2.2) 09/22/18 05:00 Total Bilirubin 0.3 mg/dL (0.2-1.3) 09/20/18 17:09 AST 39 U/L (17-59) 09/20/18 17:09 ALT 19 U/L (7-56) 09/20/18 17:09 Alkaline Phosphatase 110 U/L (38-126) 09/20/18 17:09 Lactate Dehydrogenase 502 U/L (333-699) 09/20/18 17:09 Total Creatine Kinase 226 U/L (35-230) 09/20/18 17:09 Troponin I < 0.01 ng/mL 09/21/18 06:00 NT-Pro-B Natriuret Pep 106 pg/mL (0-450) 09/20/18 17:09 Total Protein 7.6 g/dL (5.8-8.3) 09/20/18 17:09 Albumin 4.2 g/dL (3.0-4.8) 09/20/18 17:09 Globulin 3.4 gm/dL 09/20/18 17:09 Albumin/Globulin Ratio 1.2 (1.1-1.8) 09/20/18 17:09 Triglycerides 113 mg/dL (35-160) 09/20/18 17:09 Cholesterol 181 mg/dL (130-200) 09/20/18 17:09 LDL Cholesterol Direct 112 mg/dL (0-129) 09/20/18 17:09 HDL Cholesterol 45 mg/dL (29-60) 09/20/18 17:09 Free T4 1.01 ng/dL (0.78-2.19) 09/20/18 17:09 TSH 3rd Generation 1.57 mIU/mL (0.46-4.68) 09/20/18 17:09 Urine Color Yellow (YELLOW) 09/21/18 04:15 Urine Appearance Clear (CLEAR) 09/21/18 04:15 Urine pH 6.0 (4.7-8.0) 09/21/18 04:15 Ur Specific Dixon >= 1.030 (1.005-1.035) 09/21/18 04:15 Urine Protein Negative mg/dL (<30 mg/dL) 09/21/18 04:15 Urine Glucose (UA) Negative mg/dL (NEGATIVE) 09/21/18 04:15 Urine Ketones Negative mg/dL (NEGATIVE) 09/21/18 04:15 Urine Blood Negative (NEGATIVE) 09/21/18 04:15 Urine Nitrate Negative (NEGATIVE) 09/21/18 04:15 Urine Bilirubin Negative (NEGATIVE) 09/21/18 04:15 Urine Urobilinogen 0.2 E.U./dL (<1 E.U./dL) 09/21/18 04:15 Ur Leukocyte Esterase Negative Betina/uL (NEGATIVE) 09/21/18 04:15 Salicylates < 1 mg/dL (2.0-20.0) L 09/20/18 17:09 Urine Opiates Screen Positive (NEGATIVE) H 09/21/18 04:15 Urine Methadone Screen Negative (NEGATIVE) 09/21/18 04:15 Acetaminophen < 10.0 ug/ml (10.0-20.0) L 09/20/18 17:09 Ur Barbiturates Screen Negative (NEGATIVE) 09/21/18 04:15 Ur Phencyclidine Scrn Positive (NEGATIVE) H 09/21/18 04:15 Ur Amphetamines Screen Negative (NEGATIVE) 09/21/18 04:15 U Benzodiazepines Scrn Negative (NEGATIVE) 09/21/18 04:15 U Oth Cocaine Metabols Positive (NEGATIVE) H 09/21/18 04:15 U Cannabinoids Screen Negative (NEGATIVE) 09/21/18 04:15 Alcohol, Quantitative < 10 mg/dL (0-10) 09/20/18 17:09 Influenza Typ A,B (EIA) Negative for flu a/b (NEGATIVE) 09/20/18 17:09 Attending/Attestation - Attestation I have personally seen and examined this patient.: Yes I have fully participated in the care of the patient.: Yes I have reviewed all pertinent clinical information, including history, physical exam and plan: Yes Notes (Text): 09/22/18 15:15 Patient was seen and examined with medical observer 63 Yrs old male with PMH of chronic smoking ,alcohol and drug abise was admitted with atypical chest pain and possible heroin withdrawal. EKG was negative for acute ischemic changes. Serial troponins were normal. Patient was evaluated by cardiology and no further work up was recommended. He was monitored for alcohol / narcotic withdrawal. There is no sign of alcohol /Narcotic withdrawal at the time of discharge. Issue of smoking, alcohol and drug abuse was discussed in detail with him. Management plan was discussed in detail with patient. Education was provided
--- NOTE | 2018-09-22 17:57 | CARD ---
APPROVED REPORT Date of service: 09/22/2018 EXAM: Two-dimensional and M-mode echocardiogram with Doppler and color Doppler. INDICATION Chest Pain 2D DIMENSIONS Left Atrium (2D)4.3 (1.6-4.0cm)IVSd1.1 (0.7-1.1cm) LVDd5.0 (3.9-5.9cm)PWd1.1 (0.7-1.1cm) LVDs3.1 (2.5-4.0cm)FS (%) 37.7 % LVEF (%)67.6 (>50%) M-Mode DIMENSIONS Aortic Root3.30 (2.2-3.7cm)Aortic Cusp Exc.1.70 (1.5-2.0cm) Aortic Valve AoV Peak Eepyvuyw757.0cm/sAoV VTI45.0cmAO Peak GR.15mmHg LVOT Peak Mlqptzih986.0cm/sLVOT VTI29.40cmAO Mean GR.9mmHg Mitral Valve MV E Zfuzdhjn87.8cm/sMV A Netkfmfc57.9cm/sE/A ratio1.1 TDI Lateral E' Peak V9.94cm/sMedial E' Peak V7.51cm/sE/Lateral E'9.3 E/Medial E'12.4 Pulmonary Valve PV Peak Whiqjjrd33.8cm/sPV Peak Grad.3mmHg Tricuspid Valve TR Peak Hccpkham335ej/sRAP [id number] Peak Gr.18mmHg [id number] LEFT VENTRICLE The left ventricle is normal size. There is normal left ventricular wall thickness. The left ventricular function is normal. The left ventricular ejection fraction is within the normal range. There is normal LV segmental wall motion. Transmitral Doppler flow pattern is Grade I-abnormal relaxation pattern. RIGHT VENTRICLE The right ventricle is normal size. There is normal right ventricular wall thickness. The right ventricular systolic function is normal. ATRIA The left atrium is borderline dilated. The right atrium size is normal. AORTIC VALVE The aortic valve is moderately thickened. No aortic regurgitation is present. There is no aortic valvular stenosis. MITRAL VALVE The mitral valve is moderately thickened. Mitral regurgitation is trace. There is no mitral valve stenosis. TRICUSPID VALVE The tricuspid valve is normal in structure. There is trace tricuspid regurgitation. PULMONIC VALVE The pulmonary valve is normal in structure. There is trace pulmonic valvular regurgitation. GREAT VESSELS The aortic root is normal in size. The IVC is normal in size and collapses >50% with inspiration. PERICARDIAL EFFUSION There is no pericardial effusion. <Conclusion> There is normal left ventricular wall thickness. The left ventricular function is normal. The left ventricular ejection fraction is within the normal range. There is normal LV segmental wall motion. Transmitral Doppler flow pattern is Grade I-abnormal relaxation pattern.
[2018-09-23] MEDS ORDERED: Multivitamin With Minerals Tab PO SCH (08:00)
== END 2018-09-22 14:13 | disposition home or self-care (01) ==
LOC: ED 16:05 → ERH 19:40 → 2RNO 22:07 → 5RSO 09-21 16:11
PROVIDERS: ADMIT Internal Medicine; ATTEND Internal Medicine
DX: R07.89 Other chest pain (principal); F11.10 Opioid abuse, uncomplicated; F16.10 Hallucinogen abuse, uncomplicated; J44.9 Chronic obstructive pulmonary disease, unspecified; F17.210 Nicotine dependence, cigarettes, uncomplicated; Z59.0 Homelessness; M54.9 Dorsalgia, unspecified
CPT/HCPCS: 36415; 71045; 80048; 80053; 80061; 81003; 82550; 83036; 83615; 83735; 83880; 84100; 84439; 84443; 84484; 85025; 85378; 85610; 85730; 87804; 93005; 93306; 99285; G0378; G0480; J1650; J3411; J7070